=== PATIENT | female | born 1990 | race Caucasian/White ===

== ENCOUNTER 2024-01-30 14:26 | Emergency (ER) | payer OTHER ==
[~2024-01-30] VITALS: Ht 182.9 cm; Wt 65.3 kg
[2024-01-30 15:03] VITALS: BP 116/79; TEMP 98.6; O2SAT 100
== END 2024-01-30 17:12 | disposition left against medical advice (07) ==
LOC: ER 14:26
DX: R06.02 Shortness of breath (principal); Z53.21 Procedure and treatment not carried out due to patient leaving prior to being seen by health care provider

== ENCOUNTER 2024-04-06 17:13 | Emergency (ER) | payer OTHER ==
[~2024-04-06] VITALS: Ht 182.9 cm; Wt 65.3 kg
[2024-04-06] MEDS ORDERED: CYCL15CA23 PO (18:12)
[2024-04-06] MEDS ORDERED: HYDR-4303 PO (18:12)
[2024-04-06 19:09] VITALS: BP 115/64; TEMP 98.1; O2SAT 100
[2024-04-07] MEDS ORDERED: CYCL5TAB PO (12:45)
== END 2024-04-06 19:10 | disposition home or self-care (01) ==
LOC: ER 17:16
DX: M26.629 Arthralgia of temporomandibular joint, unspecified side (principal); F17.200 Nicotine dependence, unspecified, uncomplicated; F41.9 Anxiety disorder, unspecified; Z91.018 Allergy to other foods

== ENCOUNTER 2025-06-08 10:06 | Emergency (ER) | payer SELFPAY ==
[~2025-06-08] VITALS: Ht 182.9 cm; Wt 70.3 kg
[~2025-06-08 10:06] MED LIST: CYCL15CA23 PO; CYCL5TAB PO; HYDR-4303 PO
[2025-06-08] MEDS: IV NS 0.9% 1,000 ML BAG IV ONE (10:58)
[2025-06-08 11:11] LABS: PLATELET COUNT (AUTO) 250 K/uL (150-450); RED BLOOD CELL COUNT(AUTO) 4.32 MIL/uL (4.0-5.2); RED CELL DISTRIBUTION WIDTH 14.4 % (11.5-15.0); WHITE BLOOD COUNT (AUTO) 8.9 K/uL (4.3-11.0)
[2025-06-08 11:16] LABS: CALCIUM, SERUM 9.2 mg/dL (8.5-10.1); CREATININE 0.7 mg/dL (0.6-1.3); SODIUM SERUM 135 mmol/L (136-145); UREA NITROGEN, BLOOD 20 mg/dL (7-18)
[2025-06-08 11:34] LABS: ASPARTATE AMINOTRANSFERASE 29 U/L (15-37); TOTAL PROTEIN, SERUM 8.1 g/dL (6.4-8.2)
[2025-06-08 13:27] VITALS: BP 98/70; TEMP 97.8; O2SAT 100
== END 2025-06-08 13:27 | disposition home or self-care (01) ==
LOC: ER 10:06
DX: R55 Syncope and collapse (principal); F41.9 Anxiety disorder, unspecified; F17.200 Nicotine dependence, unspecified, uncomplicated; R10.20 Pelvic and perineal pain unspecified side; Z91.018 Allergy to other foods
CPT/HCPCS: 99285; 96360; 70450; 71045; 93005; 85025; 80048; 80076; 36415; 84484; 82962; 84702; J7030